=== PATIENT | male | born 2005 | race African-American/Black ===

== ENCOUNTER 2025-01-20 06:17 | Emergency (ER) | payer OTHER ==
[~2025-01-20] VITALS: Ht 175.3 cm; Wt 78.2 kg
[2025-01-20] MEDS ORDERED: BENZ1LOZ9 PO (08:30)
[2025-01-20 08:33] VITALS: BP 117/73; O2SAT 100
[2025-01-20 08:36] VITALS: TEMP 97.1
== END 2025-01-20 08:40 | disposition home or self-care (01) ==
LOC: M ED 06:17
DX: J02.9 Acute pharyngitis, unspecified (principal)